=== PATIENT | male | born 1975 | race Caucasian/White ===

== ENCOUNTER → 2022-02-22 00:22 | Outpatient (CLI) | payer BC, SELFPAY ==
--- NOTE | 2022-02-22 15:06 | DI.RAD_ITS ---
Exam(s) XR LUMBAR SPINE COMPLETE EXAM: XR LUMBAR SPINE COMPLETE CLINICAL HISTORY: LUMBAGO. TECHNIQUE: 2D digital imaging was performed of the lumbar spine. Seven images were obtained. AP, l ateral, right oblique, left oblique and L5-S1 spot views were obtained. COMPARISON: No exams were available for comparison FINDINGS: BONES: No fracture or destructive lesion. Small endplate osteophytes are seen at L4-L5. No facet hype rtrophy identified. DISKS: Intervertebral disc spaces are maintained. ALIGNMENT: Lumbar spinal alignment is within normal limits. No spondylolysis or spondylolisthesis. SOFT TISSUE: Mild atherosclerosis. IMPRESSION: Mild degenerative changes in the lumbar spine. DATA REPOSITORY: RADIATION DOSE DELIVERED:
== END ==
PROVIDERS: Visit Provider Internal Medicine
DX: M47.816 Spondylosis without myelopathy or radiculopathy, lumbar region (principal)
CPT/HCPCS: 72110

== ENCOUNTER 2022-02-22 01:43 | Outpatient (CLI) | payer BC, SELFPAY ==
[2022-02-22 16:25] LABS: FREE T4 0.89 ng/dL (0.76-1.46); TSH 8.81 uIU/mL (0.36-3.74)
== END 2022-02-22 01:44 | disposition home or self-care (01) ==
PROVIDERS: Visit Provider Internal Medicine
DX: E03.9 Hypothyroidism, unspecified (principal)
CPT/HCPCS: 36415; 84439; 84443

== ENCOUNTER 2024-05-25 17:22 | Outpatient (REF) | payer BC, SELFPAY ==
[2024-05-25 19:15] LABS: HCT 44.3 % (40.0-50.0); HGB 14.8 g/dL (13.5-17.5); MCH 30.1 pg (27.0-33.0); MCHC 33.4 % (32.0-36.0); MCV 90 fL (80-95); MPV 10.1 fL (8.0-11.0); Platelet Count 294 10^3/uL (130-400); RBC 4.92 10^6/uL (4.36-5.78); RDW-SD 39.3 fL
[2024-05-25 19:58] LABS: ALT 30 U/L (16-63); AST 20 U/L (15-37); Albumin 3.8 g/dL (3.4-5.0); Alkaline Phosphatase 75 U/L (46-116); Anion Gap 5.9 mmol/L (3-11); BUN 20 mg/dL (7-18); Bilirubin, Total 0.72 mg/dL (0.2-1.0); CO2 29.1 mmol/L (21.0-32.0); CREATININE 1.1 mg/dL (0.70-1.30); Calcium 9.1 mg/dL (8.5-10.1); Chloride 106 mmol/L (98-107); Estimated GFR 81.78 (mL/min/1.73m2); FREE T4 0.94 ng/dL (0.76-1.46); Glucose 101 mg/dL (74-106); Hemoglobin A1C 5.8 % (<5.7); Potassium 4.2 mmol/L (3.5-5.1); Sodium 141 mmol/L (136-145); TSH 2.94 uIU/Ml (0.36-3.74); Total Protein 7.2 g/dL (6.4-8.2); Uric Acid 6.3 mg/dL (3.5-7.2)
[2024-05-25 20:10] LABS: Calculated LDL 134 mg/dL (<100); Cholesterol 207 mg/dL (<200); HDL Cholesterol 42 mg/dL (40-60); Triglyceride 159 mg/dL (<150)
== END 2024-05-25 17:23 | disposition home or self-care (01) ==
LOC: NCHCN 17:22
PROVIDERS: PCP Nurse Practitioner Family; Visit Provider Nurse Practitioner Family
DX: E03.9 Hypothyroidism, unspecified (principal); E78.5 Hyperlipidemia, unspecified; R73.09 Other abnormal glucose; R51.9 Headache, unspecified; M79.674 Pain in right toe(s); E66.8 Other obesity; Z68.41 Body mass index [BMI] 40.0-44.9, adult
CPT/HCPCS: 80053; 80061; 85027; 83036; 84439; 84443; 84550

== ENCOUNTER 2024-12-03 06:51 | Day surgery (SDC) | payer BC, SELFPAY ==
--- NOTE | 2024-12-02 12:45 | W.PM.DSUDISC ---
Date of service: 12/03/24 Discharge Plan Disposition Patient Disposition: Home Condition: Good Discharge Details Reason For Visit: screening colonoscopy Attending Provider: Timothy Mccurdy Primary Care Provider: BRYAN HOLM Home Meds and New Rx's Prescriptions: Continued levothyroxine 50 mcg capsule 50 mcg PO DAILY Discontinued polyethylene glycol 3350 17 gram/dose powder 238 g PO ONCE Qty: 238 0RF Rx Instructions: take per colonoscopy instructions bisacodyl [Dulcolax (bisacodyl)] 5 mg tablet,delayed release (DR/EC) 5 mg PO ONCE Qty: 4 0RF Rx Instructions: take per colonoscopy instructions Discharge Instructions Instructions: Colon polyps Additional Instructions: Glenn, everything went very smoothly today, and hopefully make a quick recovery from the procedure. Your prep was excellent and I could see everything fine. I did find to remove 2 polyps today. These were both quite small, and I am even a little skeptical that one of them is a true polyp. Regardless, these came out very easily, and both will be sent off to the pathologist for their review. Once I know the nature of those polyps, I will be able to offer a better recommendation for timing of future colonoscopies. Those results usually take a week or so to get back, and once we have them, the office will be in touch. If you need anything, or have any questions in the meantime, please do not hesitate to call. 1. If tolerated, consume a soft, low fiber diet for 1-2 days. 2[address] Do not drive, drink alcohol, operate machinery, make critical decisions, or do activities that require coordination or balance for 24 hours. 3. Because air was put into your colon during the procedure, expelling air from your rectum (passing gas or farting) is normal. 4. You may not have a bowel movement for 1-3 days because of the colonoscopy prep. This is normal. 5. Go directly to the emergency room if you notice any of the following: Develop chills (warm to touch), or if you have a thermometer and your temperature is above 101 Difficulty breathing or difficultly swallowing Persistent vomiting Severe abdominal pain, other than gas cramps Severe chest pain Black, tarry stools Any bleeding ? exceeding one tablespoon 6. Call your physician if the site where your intravenous was started becomes red, swollen, painful, and warm to touch. 7. Your physician has reviewed your pre-procedure medications. Please continue to take those medications as previously ordered. You will be given specific information/education regarding any changes to your medications before leaving. Activity:: Activity as Tolerated Diet:: As Tolerated Discharge Orders Discharge Orders: Discharge Order (Routine); Ordered 12/02/24 Ordered By: Timothy Mccurdy DS: Diagnosis Discharge Diagnosis (1) Encounter for screening colonoscopy: Status: Acute Asessment and Plan: Follow-up on polypectomy results
--- NOTE | 2024-12-02 12:47 | COLE_ITS ---
Date of service: 12/03/24 Time of Service: 09:09 Colonoscopy Report Date of procedure: 12/03/24 Pre-op diagnosis general: screening colonoscopy Post-op diagnosis procedure note: other (Colon polyps) Procedure: colonoscopy with polypectomy Surgeon: Timothy Mccurdy Anesthesia Type: General:No Airway Estimated blood loss (mL): 5 Pathology: other (0.25 cm polyp at 40 cm, 0.25 cm polyp at 30 cm) Complications: None Disposition: same day Indications: Glenn is a 49 year old man who needs a screening colonoscopy Prep: Miralax/Dulcolax Procedure Start Time: 08:49 Procedure End Time: 09:04 Retraction Time: 10 Findings: 0.25 cm polyp at 40 cm, 0.25 cm polyp at 30 cm Procedure Description: After the induction of anesthesia, and with the patient in left lateral decubitus position, I began by performing an external anorectal exam.? Perineum and skin were normal, as was the anal verge.? There was no evidence of external hemorrhoids.? Next, I performed a digital rectal exam.? I did not appreciate any abnormal findings.? Next, I advanced a colonoscope into the rectal vault.? I performed retroflexion.? This appeared normal.? Using insufflation, I then advanced the colonoscope beyond the rectal folds and into the sigmoid colon before advancing towards the cecum.? The quality of the prep was excellent.? The scope was noted to be in the cecum by identification of the ileocecal valve and appendiceal orifice.? I then began withdrawing the colonoscope using repeated irrigation as necessary for full evaluation of the colonic mucosa. Around 40 cm from the anal verge I identified a 0.25 cm polyp. ?It appeared flat in characte r. ?I was able to remove this with a cold forcep polypectomy. ?I examined the site, and there was minimal bleeding. Another 0.25 cm flat polyp was found at 30 cm from the anal verge. This was removed cold forceps without any issues. Once this was completed, I continued to withdraw the scope and examine the remainder of the colonic mucosa.?Once the scope was withdrawn to the level of the rectum, great care was taken to examine portions of the rectal folds.? Finally, the scope was withdrawn and the patient was brought to the same-day surgery recovery unit as the anesthetic wore off. ?The findings and instructions were shared with the patient prior to discharge. [place] Bowel Prep Marquette Bowel Prep Right Colon: 3 Left Colon: 3 Transverse Colon: 3 Total Score: 9
[2024-12-03 07:05] VITALS: BP 131/88; PULSE 71; RESP 16; TEMP 36.6; O2SAT 96
[2024-12-03] MEDS: Lactated Ringers 1,000 ML 80 ML IV (07:29)
--- NOTE | 2024-12-03 08:04 | W.ANESPRE ---
General Info Date of Service Date Performed: 12/03/24 Height: 5 ft 10 in Weight: 121.6 kg Body Mass Index (BMI): 38.5 Surgical Procedure: Operation Date: 12/03/24 08:20 Proposed Procedure Side Surgeon naheed Mccurdy MD Meds Allergies and Home Medications Allergies Allergy/AdvReac Type Severity Reaction Status Date / Time No Known Allergies Allergy Verified 12/03/24 07:02 Home Medication ?Medication ?Instructions ?Recorded levothyroxine 50 mcg capsule 50 mcg PO DAILY 11/08/24 Current Visit Medications: Current Medications Generic Name Dose Route Start Last Admin Trade Name Freq PRN Reason Stop Dose Admin Ringer's Solution 1,000 mls @ 80 mls/hr 12/03/24 06:00 12/03/24 07:29 IV 12/03/24 23:59 80 mls/hr INFUSION JOHNSON Administration IV Miscellaneous Supplies 1 each 12/03/24 06:00 Iv Access IV 12/03/24 23:59 DIRECTED JOHNSON Ondansetron HCl 4 mg 12/02/24 12:49 Ondansetron 4 Mg/2 Ml Vial IVP 01/01/25 12:48 Q4H PRN PRN Nausea / Vomiting Sodium Chloride 0 ml 12/03/24 06:00 Normal Saline Flush 10 Ml Syr IV 12/03/24 23:59 PRN PRN Sodium Chloride 0 ml 12/03/24 06:00 Normal Saline 10 Ml Vial IJ 12/03/24 23:59 DIRECTED PRN Sterile Water 0 ml 12/03/24 06:00 Water,Injection,Sterile 10 Ml Vial IJ 12/03/24 23:59 DIRECTED PRN PFSH Active Problems Active Problems: Problem Status Onset Code Encounter for screening colonoscopy Acute Z12.11 Hyperlipidemia Acute E78.5 Hypothyroidism Chronic E03.9 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 Overweight Acute E66.3 Dysplastic nevus Acute D23.9 Medical History Medical History JESSICA (obstructive sleep apnea) Surgical History Surgical History Hx laparoscopic cholecystectomy Tobacco Smoking/Tobacco Use Status: Former Tobacco Use Passive smoking exposure: No Alcohol Alcohol Intake: current Alcohol intake frequency: holidays/special occasions only Substance Use Substance use: Never Substance use type: does not use Vital Signs and Lab Results Vital Signs Most Recent Vital Signs in EMR: Most Recent Vital Signs Temp Pulse Resp BP Pulse Ox 36.6 C 71 16 131/88 96 12/03/24 07:05 12/03/24 07:05 12/03/24 07:05 12/03/24 07:05 12/03/24 07:05 Lab Results Blood Type / Crossmatch: No Data to Display Complete Blood Count: No Data to Display Complete Metabolic Panel: No Data to Display Liver Function Panel: No Data to Display Coagulation Panel: No Data to Display Cardiac Panel: No Data to Display Arterial Blood Gas: No Data to Display Venous Blood Gas: No Data to Display Pancreas Panel: No Data to Display Thyroid Panel: No Data to Display Infectious Disease: No Data to Display Blood Cultures: No Data to Display Toxicology Panel: No Data to Display Anesthesia Assessment and Plan Anesthesia History Personal History: No History of Anesthesia Complications Family History: No Family History of Anesthesia Complications Exercise Tolerance Exercise Tolerance: Metabolic Equivalents>4 Pertinent Negatives Pertinent Negatives: No Symptoms of GERD Cardiac & Pulmonary Exam Cardiac Exam: Normal S1/S2 Heart Sounds Pulmonary Exam: Clear Bilateral Breath Sounds Implantable Cardiac Device Does patient have a Pacemaker or an ICD?: No Airway Exam Known Difficult Airway: No Mallampati Class: 3 Mouth Opening: Normal (> 3cm) Thyromental Distance: Greater than 3 cm Neck Range of Motion: Full ROM Neck Circumference: Normal Teeth Condition: Normal Dentition and Generalized Poor Dentition ASA Classification ASA Score: ASA 2 Emergency Case?: No NPO Status NPO Status: NPO Clears >2 hours, Solids >8 hours Anesthesia Plan Resuscitation Status: Full Code Anesthesia Technique: General Anesthesia Airway Planned: Natural Airway Monitors Used: Standard Monitors
[2024-12-03 08:27] VITALS: BMI 38.5
--- NOTE | 2024-12-03 09:01 | BOWEL_PTH ---
PATIENT: Glenn Holder LOC: [facility] U#:[id number] AGE/SX: 49/M ROOM: RE12/03/[address]: Timothy Mccurdy MD : 1975 BED: DIS: 12/03/2024 SPEC #: [id number] RECD: 12/03/24 12:31 STATUS: LEONILA REQ #: [id number] IJEOMA: 12/03/24 09:[address]: Timothy Mccurdy DEPT: Surgical Specimen RECD BY: Carlee Youngblood ENTERED: 12/03/24 12:31 SP TYPE: Bowel OTHR DR: BRYAN HOLM, DELMI Tissues: 1 - BIOPSY BOWEL 2 - BIOPSY BOWEL Procedures: GROSS AND MICRO LEVEL 4 Comments: [id number]
[2024-12-03 09:11] VITALS: BP 107/65; PULSE 73; RESP 16; TEMP 36.4; O2SAT 95
[2024-12-03 09:41] VITALS: BP 106/77; PULSE 61; RESP 16; TEMP 36.2; O2SAT 97
--- NOTE | 2024-12-03 10:00 | W.ANESPOSTOP ---
Postoperative Evaluation Date, Time and Location Date Performed: 12/03/24 Time Performed: 09:15 Patient Location: Day Surgery Unit Vital Signs Most Recent Imported Vital Signs: Most Recent Vital Signs Temp Pulse Resp BP Pulse Ox 36.2 C L 61 16 106/77 97 12/03/24 09:41 12/03/24 09:41 12/03/24 09:41 12/03/24 09:41 12/03/24 09:41 Pain Score Most Recent Pain Score: Most Recent Pain Score Pain Level 0 12/03/24 09:41 Assessment Mental Status: Awake (Alert & Oriented to Patient Baseline) Airway and Respiratory Function: Patent airway with normal (patient baseline) respiratory exam Cardiovascular Function: Hemodynamically Stable Hydration Status: Adequately Hydrated Nausea & Vomiting: No Nausea or Vomiting Pain: Pt. Denies Any Pain Peripheral Nerve Block: Patient did not receive a nerve block
== END 2024-12-03 10:07 | disposition home or self-care (01) ==
LOC: SUR 06:51
PROVIDERS: PCP Nurse Practitioner Family; Visit Provider Surgery
PROC: 0DJD8ZZ Inspection of Lower Intestinal Tract, Via Natural or Artificial Opening Endoscopic (ICD-10-PCS; CPT 45378; principal; 2024-12-03 08:15)
DX: Z12.11 Encounter for screening for malignant neoplasm of colon (principal); D12.5 Benign neoplasm of sigmoid colon
CPT/HCPCS: 45380; 88305; J2704

== ENCOUNTER 2025-08-08 12:58 | Outpatient (REF) | payer BC, SELFPAY ==
[2025-08-08 17:05] LABS: ALT 26 U/L (10-49); AST 23 U/L (<34); Albumin 4.6 g/dL (3.4-5.0); Alkaline Phosphatase 88 U/L (46-116); Anion Gap 7.4 mmol/L (3-11); BUN 15 mg/dL (9-23); Bilirubin, Total 0.90 mg/dL (0.2-1.2); CO2 26.6 mmol/L (20.0-31.0); Calcium 9.1 mg/dL (8.3-10.6); Chloride 104 mmol/L (98-107); Cholesterol 210 mg/dL (<200); Glucose 89 mg/dL (74-106); HDL Cholesterol 38 mg/dL (>40); Potassium 4.3 mmol/L (3.5-5.1); Sodium 138 mmol/L (136-145); Total Protein 7.5 g/dL (5.7-8.2)
[2025-08-08 17:08] LABS: TSH (W/Ref FT4) 4.05 uIU/mL (0.55-4.78)
[2025-08-08 17:28] LABS: Hemoglobin A1C 5.4 % (<5.7)
== END 2025-08-08 12:59 | disposition home or self-care (01) ==
LOC: NCHCN 12:58
PROVIDERS: PCP Nurse Practitioner Family; Visit Provider Nurse Practitioner Family
DX: R73.03 Prediabetes (principal); E03.9 Hypothyroidism, unspecified; Z00.00 Encounter for general adult medical examination without abnormal findings; E78.5 Hyperlipidemia, unspecified
CPT/HCPCS: 80053; 80061; 86376; 83036; 84443